=== PATIENT | male | born 1975 | race American Indian/Alaskan Native ===

== ENCOUNTER 2017-11-18 13:51 | Outpatient (CLI) | payer BC ==
--- NOTE | 2017-11-19 08:30 | XRay Report ---
XRAY LEFT HIP THREE VIEWS: 11/18/17 13:51:00 CLINICAL: Left hip pain. FINDINGS: No fracture identified and no dislocation. Deformity and increased density of the femoral head. Severe osteoarthritis with narrowing of the superior and inferior joint spaces, acetabular eburnation and large superior and inferior osteophytes. Similar changes in the right hip. Bilateral SI joint sclerosis. No erosions. Lower lumbar degenerative disc disease with large osteophytes. IMPRESSION: Severe bilateral osteoarthritis of the hips and changes in the femoral heads which are suspicious for avascular necrosis.
== END 2017-11-18 13:52 | disposition home or self-care (01) ==
LOC: SPVIMAG 13:51
PROVIDERS: ATTEND Orthopaedic Surgery Sports Medicine
DX: M16.0 Bilateral primary osteoarthritis of hip (principal)